=== PATIENT | male | born 1935 | race Two or more races ===

== ENCOUNTER 2018-05-20 10:40 | Emergency (ER) | payer OTHER ==
[~2018-05-20] VITALS: Ht 162.6 cm; Wt 83.9 kg
[~2018-05-20 10:40] MED LIST: SURFAK240 M1 PO; ULTRACET PO
== END 2018-05-20 14:47 | disposition home or self-care (01) ==
LOC: ER 10:40
DX: S01.412A Laceration without foreign body of left cheek and temporomandibular area, initial encounter (principal); S00.03XA Contusion of scalp, initial encounter; W06.XXXA Fall from bed, initial encounter; Y93.89 Activity, other specified; Y92.013 Bedroom of single-family (private) house as the place of occurrence of the external cause; Y99.8 Other external cause status

== ENCOUNTER 2019-02-28 09:52 | Emergency (ER) | payer OTHER ==
[~2019-02-28] VITALS: Ht 162.6 cm; Wt 83.9 kg
[2019-02-28] MEDS ORDERED: NEURONTIN300 MG (10:02)
[2019-02-28] MEDS ORDERED: DIVALPROEX SOD250 M1 (10:02)
[2019-02-28] MEDS ORDERED: DONEPEZIL HCL O10 MG (10:03)
[2019-02-28] MEDS ORDERED: PENTOXIFYLLINE400 MG (10:03)
[2019-02-28] MEDS ORDERED: KETO10TA2 PO (12:54)
[2019-02-28] MEDS ORDERED: ORPHENADRINE C100 MG PO (12:54)
== END 2019-02-28 14:09 | disposition home or self-care (01) ==
LOC: ER 09:52
DX: M25.562 Pain in left knee (principal); S83.8X2S Sprain of other specified parts of left knee, sequela; W19.XXXS Unspecified fall, sequela

== ENCOUNTER 2019-05-18 11:26 | Emergency (ER) | payer OTHER ==
[~2019-05-18] VITALS: Ht 165.1 cm; Wt 83.9 kg
[~2019-05-18 11:26] MED LIST changes: +DIVALPROEX SOD250 M1; +DONEPEZIL HCL O10 MG; +KETO10TA2 PO; +NEURONTIN300 MG; +ORPHENADRINE C100 MG PO; +PENTOXIFYLLINE400 MG
[2019-05-18] MEDS ORDERED: ARICEPT23 MG (11:56)
== END 2019-05-18 15:32 | disposition home or self-care (01) ==
LOC: ER 11:26
DX: S20.212A Contusion of left front wall of thorax, initial encounter (principal); W18.2XXA Fall in (into) shower or empty bathtub, initial encounter; Y93.89 Activity, other specified; Y92.012 Bathroom of single-family (private) house as the place of occurrence of the external cause; Y99.8 Other external cause status

== ENCOUNTER 2019-06-05 19:45 | Emergency (ER) | payer OTHER ==
[~2019-06-05] VITALS: Ht 165.1 cm; Wt 83.0 kg
[~2019-06-05 19:45] MED LIST changes: +ARICEPT23 MG
[2019-06-05] MEDS ORDERED: PENTOXIFYLLINE400 MG (20:07)
[2019-06-05] MEDS ORDERED: RISPERDAL0.5 MG (20:08)
== END 2019-06-06 15:41 | disposition home or self-care (01) ==
LOC: ER 19:45
DX: G30.8 Other Alzheimer's disease (principal); F02.80 Dementia in other diseases classified elsewhere, unspecified severity, without behavioral disturbance, psychotic disturbance, mood disturbance, and anxiety; R41.0 Disorientation, unspecified